=== PATIENT | female | born 2005 | race American Indian/Alaskan Native ===

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

== ENCOUNTER 2023-03-23 08:53 | Emergency (ER) | payer MEDICAID ==
[2023-03-23] MEDS ORDERED: Diphtheria,Pertussis(Acell),Tetanus Vaccine 0.5 ML Syringe IM ONE (09:06)
[2023-03-23 09:08] VITALS: BP 134/93; PULSE 109
[2023-03-23] MEDS ORDERED: Ibuprofen 800 MG Tab PO ONE (09:23)
[2023-03-23] MEDS ORDERED: Lidocaine 1% with EPINEPHrine 1:100,000 20 ML MDV INFILT ONE (09:24)
== END 2023-03-23 09:45 | disposition home or self-care (01) ==
LOC: DL.ED 08:53
DX: S01.01XA Laceration without foreign body of scalp, initial encounter (principal); Z23 Encounter for immunization; W10.9XXA Fall (on) (from) unspecified stairs and steps, initial encounter
CPT/HCPCS: 12001; 90471; 90715; 99282; A9270; J3490

== ENCOUNTER 2023-04-12 07:19 | Emergency (ER) | payer MEDICAID ==
[2023-04-12] MEDS ORDERED: Acetaminophen 325 MG Tab PO ONE (07:52)
[2023-04-12] MEDS ORDERED: Ibuprofen 600 MG Tab PO ONE (07:53)
[2023-04-12 08:13] VITALS: BP 117/82; PULSE 124
[2023-04-12] MEDS ORDERED: Azithromycin 250 MG Tab PO ONE ×2 (08:35→08:36)
[2023-04-12] MEDS ORDERED: Take Home: Amoxicillin/Clavulanate K 875-125 MG Tab, 6 Tab Pack PO ONE (08:37)
[2023-04-12 08:42] LABS: CORONAVIRUS COVID-19 NAA NEGATIVE (NEGATIVE); INFLUENZA A NAA POSITIVE (NEGATIVE); INFLUENZA B NAA NEGATIVE (NEGATIVE); RESPIRATORY SYNCYTIAL VIR NAA NEGATIVE (NEGATIVE)
== END 2023-04-12 09:22 | disposition home or self-care (01) ==
LOC: DL.ED 07:19
DX: J15.9 Unspecified bacterial pneumonia (principal); J10.1 Influenza due to other identified influenza virus with other respiratory manifestations; Z20.822 Contact with and (suspected) exposure to COVID-19
CPT/HCPCS: 0241U; 71045; 99283; A9270-GY

== ENCOUNTER 2023-11-22 02:14 | Emergency (ER) | payer MEDICAID ==
[2023-11-22 02:30] VITALS: BP 137/83; PULSE 136
[2023-11-22 03:04] LABS: BASOPHILS PERCENT AUTO 0.7 % (0.0-1.0); EOSINOPHILS PERCENT AUTO 0.4 % (1.0-3.0); HEMATOCRIT 34.7 % (37.0-47.0); LYMPHOCYTES PERCENT AUTO 24.9 % (20.5-50.1); MEAN CORPUSCULAR HEMOGLOBIN 26.3 pg (27.0-34.0); MEAN CORPUSCULAR HGB CONC 31.7 g/dL (33.0-35.0); MONOCYTES PERCENT AUTO 8.5 % (2-8); NEUTROPHILS PERCENT AUTO 65.5 % (42.2-75.2); PLATELET COUNT,PLT 367 10^3/uL (150-450); RED BLOOD CELL COUNT 4.18 10^6/uL (4.2-5.4); WHITE BLOOD CELL COUNT,WBC 9.4 10^3/uL (5.0-10.0)
[2023-11-22 03:15] LABS: HCG QUALITATIVE,SERUM NEGATIVE (NEGATIVE)
[2023-11-22 03:17] LABS: APPEARANCE,URINE CLEAR (CLEAR); BILIRUBIN,URINE NEGATIVE (NEGATIVE); COLOR,URINE YELLOW (YELLOW); GLUCOSE,URINE NEGATIVE (NEGATIVE); KETONES,URINE TRACE (NEGATIVE); LEUKOCYTE ESTERASE,URINE TRACE (NEGATIVE); NITRITE,URINE NEGATIVE (NEGATIVE); OCCULT BLOOD,URINE SMALL (NEGATIVE); PH,URINE 5.5 (5.0-9.0); PROTEIN,URINE NEGATIVE (NEGATIVE); UROBILINOGEN,URINE 0.2 mg/dL (0.2-1.0)
[2023-11-22 03:21] LABS: AMPHETAMINES,URINE POSITIVE (NEGATIVE); BARBITURATES,URINE NEGATIVE (NEGATIVE); BENZODIAZEPINE,URINE NEGATIVE (NEGATIVE); MDMA (ECSTASY), URINE NEGATIVE (NEGATIVE); METHADONE,URINE NEGATIVE (NEGATIVE); METHAMPHETAMINES,URINE POSITIVE (NEGATIVE); OPIATES,URINE NEGATIVE (NEGATIVE); OXYCODONE,URINE NEGATIVE (NEGATIVE); PHENCYCLIDINE,URINE NEGATIVE (NEGATIVE); TCA,URINE NEGATIVE (NEGATIVE)
[2023-11-22 03:31] LABS: BACTERIA,URINE MODERATE /HPF (0-FEW/HPF); EPITHELIAL CELLS,URINE FEW /HPF (NOT SEEN); RBC,URINE 0-5 /HPF (0-5)
[2023-11-22 03:43] LABS: A/G RATIO 1.1; ALANINE AMINOTRANSFERASE,ALT 30 U/L (14-59); ALKALINE PHOSPHATASE 130 U/L (46-116); ANION GAP 12.3 mEq/L (7-13); ASPARTATE AMNIOTRANSFERASE,AST 33 U/L (15-37); BILIRUBIN TOTAL 0.3 mg/dL (0.2-1.0); BLOOD UREA NITROGEN,BUN 20 mg/dL (7-18); BUN/CREATININE RATIO 21.3 (No establ ref range); CALCIUM 9.1 mg/dL (8.5-10.1); CARBON DIOXIDE,CO2 24 mmol/L (21-32); CHLORIDE,CL 102 mmol/L (98-107); CREATININE 0.94 mg/dL (0.55-1.02); EST CRCL DRUG DOSING (CG) 92.84 mL/min; ETHANOL BLOOD MEDICAL 141 mg/dL (0); GLUCOSE RANDOM 86 mg/dL (70-99); POTASSIUM,K 3.3 mmol/L (3.5-5.1); PROTEIN TOTAL,TP 7.5 g/dL (6.4-8.2); SODIUM,NA 135 mmol/L (136-145); TSH ULTRASENSITIVE 1.65 uIU/mL (0.36-3.74)
[2023-11-22 03:45] LABS: ESTIMATED GFR 89 mL/min (>=60)
== END 2023-11-22 03:04 | disposition left against medical advice (07) ==
LOC: DL.ED 02:14
DX: S62.327A Displaced fracture of shaft of fifth metacarpal bone, left hand, initial encounter for closed fracture (principal); F17.210 Nicotine dependence, cigarettes, uncomplicated; Z79.899 Other long term (current) drug therapy; W51.XXXA Accidental striking against or bumped into by another person, initial encounter
CPT/HCPCS: 36415; 73130-RT; 80053; 80305-QW; 80307; 81001; 84443; 84703; 85025; 87086; 87088; 87186; 93010; 99283; 99284

== ENCOUNTER 2023-11-22 16:33 | Emergency (ER) | payer MEDICAID ==
[2023-11-22 17:21] VITALS: BP 110/73; PULSE 78
[2023-11-22] MEDS: fentaNYL 100 MCG/2 ML SDV IM ONE (18:01)
[2023-11-22] MEDS: Take Home: Nitrofurantoin Monohydrate/Macrocrystalline 100 MG, 6 Cap Pack PO ONE (18:06)
[2023-11-24 12:41] LABS: C.TRACHOMATIS BY TMA Negative (Negative); N.GONORRHOEAE BY TMA Negative (Negative); SOURCE GENITAL
== END 2023-11-22 18:21 | disposition home or self-care (01) ==
LOC: DL.ED 16:33
DX: S62.326D Displaced fracture of shaft of fifth metacarpal bone, right hand, subsequent encounter for fracture with routine healing (principal); N30.00 Acute cystitis without hematuria; N93.9 Abnormal uterine and vaginal bleeding, unspecified; Z79.899 Other long term (current) drug therapy; Y04.8XXD Assault by other bodily force, subsequent encounter
CPT/HCPCS: 29125; 87491; 87591; 96372; 99283; A9270; J3010

== ENCOUNTER 2024-02-02 19:09 | Emergency (ER) | payer SELFPAY ==
[2024-02-02 19:43] LABS: AMPHETAMINES,URINE POSITIVE (NEGATIVE); BARBITURATES,URINE NEGATIVE (NEGATIVE); BENZODIAZEPINE,URINE NEGATIVE (NEGATIVE); MDMA (ECSTASY), URINE NEGATIVE (NEGATIVE); METHADONE,URINE NEGATIVE (NEGATIVE); METHAMPHETAMINES,URINE POSITIVE (NEGATIVE); OPIATES,URINE NEGATIVE (NEGATIVE); OXYCODONE,URINE NEGATIVE (NEGATIVE); PHENCYCLIDINE,URINE NEGATIVE (NEGATIVE); TCA,URINE NEGATIVE (NEGATIVE)
[2024-02-02 19:48] LABS: BASOPHILS PERCENT AUTO 0.6 % (0.0-1.0); EOSINOPHILS PERCENT AUTO 0.9 % (1.0-3.0); HEMATOCRIT 43.8 % (37.0-47.0); HEMOGLOBIN 14.2 g/dL (12.0-16.0); LYMPHOCYTES PERCENT AUTO 17.2 % (20.5-50.1); MEAN CORPUSCULAR HEMOGLOBIN 27.4 pg (27.0-34.0); MEAN CORPUSCULAR HGB CONC 32.4 g/dL (33.0-35.0); MEAN CORPUSCULAR VOLUME 84.6 fL (80-100); MONOCYTES PERCENT AUTO 8.3 % (2-8); PLATELET COUNT,PLT 390 10^3/uL (150-450); RED BLOOD CELL COUNT 5.18 10^6/uL (4.2-5.4); WHITE BLOOD CELL COUNT,WBC 8.5 10^3/uL (5.0-10.0)
[2024-02-02 19:50] LABS: APPEARANCE,URINE SLIGHTLY CLOUDY (CLEAR); BILIRUBIN,URINE NEGATIVE (NEGATIVE); COLOR,URINE YELLOW (YELLOW); GLUCOSE,URINE NEGATIVE (NEGATIVE); KETONES,URINE NEGATIVE (NEGATIVE); LEUKOCYTE ESTERASE,URINE TRACE (NEGATIVE); NITRITE,URINE NEGATIVE (NEGATIVE); OCCULT BLOOD,URINE MODERATE (NEGATIVE); PH,URINE 5.5 (5.0-9.0); PROTEIN,URINE NEGATIVE (NEGATIVE); UROBILINOGEN,URINE 0.2 mg/dL (0.2-1.0)
[2024-02-02 20:00] LABS: WBC,URINE 20-30 /HPF (0-5/HPF)
[2024-02-02 20:01] LABS: BACTERIA,URINE MODERATE /HPF (0-FEW/HPF); EPITHELIAL CELLS,URINE FEW /HPF (NOT SEEN)
[2024-02-02 20:03] LABS: HCG QUALITATIVE,SERUM NEGATIVE (NEGATIVE)
[2024-02-02 20:09] LABS: A/G RATIO 1.1; ALANINE AMINOTRANSFERASE,ALT 23 U/L (14-59); ALBUMIN 4.3 g/dL (3.4-5.0); ALKALINE PHOSPHATASE 140 U/L (46-116); ANION GAP 14.2 mEq/L (7-13); ASPARTATE AMNIOTRANSFERASE,AST 23 U/L (15-37); BILIRUBIN TOTAL 0.5 mg/dL (0.2-1.0); BLOOD UREA NITROGEN,BUN 11 mg/dL (7-18); BUN/CREATININE RATIO 12.8 (No establ ref range); C-REACTIVE PROTEIN < 0.50 ng/dL (<=0.50); CALCIUM 9.5 mg/dL (8.5-10.1); CARBON DIOXIDE,CO2 25 mmol/L (21-32); CHLORIDE,CL 103 mmol/L (98-107); CREATININE 0.86 mg/dL (0.55-1.02); EST CRCL DRUG DOSING (CG) 96.87 mL/min; ESTIMATED GFR 99 mL/min (>=60); GLUCOSE RANDOM 65 mg/dL (70-99); POTASSIUM,K 4.2 mmol/L (3.5-5.1); PROTEIN TOTAL,TP 8.2 g/dL (6.4-8.2); SODIUM,NA 138 mmol/L (136-145)
[2024-02-02 20:25] VITALS: BP 118/64; PULSE 85
== END 2024-02-02 20:23 | disposition home or self-care (01) ==
LOC: DL.ED 19:09
DX: R10.31 Right lower quadrant pain (principal); R10.32 Left lower quadrant pain; Z79.899 Other long term (current) drug therapy
CPT/HCPCS: 36415; 80053; 80305-QW; 81001; 83735; 84703; 85025; 86140; 87077; 87086; 87186; 99284

== ENCOUNTER 2024-03-18 07:54 | Emergency (ER) | payer SELFPAY ==
[2024-03-18 08:01] VITALS: BP 130/81; PULSE 93
[2024-03-18] MEDS: Lidocaine 1% with EPINEPHrine 1:100,000 20 ML MDV INJECT ONE (08:14)
[2024-03-18] MEDS: Bupivacaine 0.25% 10 ML SDV INJECT ONE (08:14)
== END 2024-03-18 08:43 | disposition home or self-care (01) ==
LOC: DL.ED 07:54
DX: S51.812A Laceration without foreign body of left forearm, initial encounter (principal); Z79.899 Other long term (current) drug therapy; W26.0XXA Contact with knife, initial encounter
CPT/HCPCS: 12002; 99283; J0665; 99282; J3490

== ENCOUNTER 2024-03-24 11:36 | Emergency (ER) | payer SELFPAY ==
[2024-03-24 11:56] VITALS: BP 143/68; PULSE 97
== END 2024-03-24 12:17 | disposition home or self-care (01) ==
LOC: DL.ED 11:36
DX: S41.112D Laceration without foreign body of left upper arm, subsequent encounter (principal); Z79.899 Other long term (current) drug therapy; X58.XXXD Exposure to other specified factors, subsequent encounter
CPT/HCPCS: 99282; 99283

== ENCOUNTER 2024-04-23 16:02 | Emergency (ER) | payer MEDICAID ==
[2024-04-23 16:12] VITALS: BP 111/55; PULSE 93
[2024-04-23] MEDS: Take Home: Benzonatate 100 MG, 6 Cap Pack PO ONE (16:16)
[2024-04-23] MEDS: guaiFENesin/Dextromethorphan 100-10 MG/5 ML Soln 5 ML Cup PO ONE (16:21)
== END 2024-04-23 16:24 | disposition home or self-care (01) ==
LOC: DL.ED 16:02
DX: B34.9 Viral infection, unspecified (principal); Z79.899 Other long term (current) drug therapy
CPT/HCPCS: 99284; A9270

== ENCOUNTER 2024-05-27 21:29 | Emergency (ER) | payer MEDICAID ==
[2024-05-27 22:21] VITALS: BP 135/83; PULSE 105
== END 2024-05-27 22:25 | disposition left against medical advice (07) ==
LOC: DL.ED 21:29
DX: Z53.21 Procedure and treatment not carried out due to patient leaving prior to being seen by health care provider (principal)
CPT/HCPCS: 87428-QW